=== PATIENT | female | born 1995 | race Caucasian/White ===

== ENCOUNTER 2018-11-22 07:29 | Emergency (ER) | payer SELFPAY ==
[~2018-11-22] VITALS: Ht 172.7 cm; Wt 71.7 kg
[2018-11-22] MEDS ORDERED: NKM (07:35)
[2018-11-22 07:37] VITALS: BP 138/81
--- NOTE | 2018-11-22 07:37 | NUR ---
ED Nurse Note: A/OX4. AMBULATED INTO ER DUE TO FACIAL SWELLING AND BILATERAL JAW PAIN 04/14 SINCE YESTERDAY. PT STATES THE PAIN INCREASES WITH NECK MOVEMENT OR CHEWING MOTION. TOOK MOTRIN YESTERDAY BUT DID NOT RELIEVE THE PAIN.
[2018-11-22] MEDS ORDERED: LORazepam Inj 2mg/ml 1ml IV ONE (08:00)
[2018-11-22] MEDS ORDERED: Ketorolac 30mg Inj IV ONE (08:00)
[2018-11-22] MEDS ORDERED: Isovue-300 100ml vial INJ PRN (08:00)
--- NOTE | 2018-11-22 08:03 | Emergency Room Report ---
History of Present Illness General Chief Complaint: General Complaint Source: Patient Present Illness HPI 23-year-old female with no PMH presents with bilateral facial pain since yesterday, denies f/c, ear pain, sore throat, vision complaints, headache, toothache, trauma, recent travel. Pain is constant, nonradiating, moderate intensity, partially relieved with tylenol. Allergies: Coded Allergies: No Known Allergies (Unverified , 11/22/18) Patient History Past Medical History: see triage record Last Menstrual Period: 3 weeks ago Reviewed Nursing Documentation: PMH: Agreed; PSxH: Agreed Nursing Documentation-PMH Past Medical History: No Stated History Review of Systems All Other Systems: negative except mentioned in HPI Physical Exam Vital Signs Date Time Temp Pulse Resp B/P (MAP) Pulse Ox O2 Delivery O2 Flow Rate FiO2 11/22/18 07:32 99.0 106 18 138/81 97 Room Air Sp02 EP Interpretation: reviewed, normal General Appearance: no apparent distress, alert, non-toxic Head: normocephalic Eyes: bilateral eye normal inspection, bilateral eye PERRL, bilateral eye EOMI ENT: normal ENT inspection, hearing grossly normal, normal pharynx, no angioedema, normal voice, TMs + canals normal, uvula midline, moist mucus membranes, other - B/L parotid gland areas swollen with mild tenderness, no overlying erythema/warmth/tenderness Neck: normal inspection, full range of motion, supple, thyroid normal, no meningismus, no bony tend, supple/symm/no masses Respiratory: chest non-tender, lungs clear, normal breath sounds, no rhonchi, no respiratory distress, no retraction, no accessory muscle use, no wheezing, chest symmetrical, palpation of chest normal Cardiovascular #1: normal peripheral pulses, regular rate, rhythm, no edema, no gallop, no JVD, no murmur, no rub Cardiovascular #2: 2+ radial (R), 2+ radial (L) Gastrointestinal: normal inspection, non tender, soft, no mass, no guarding, no rebound Rectal: deferred Genitourinary: normal inspection, no CVA tenderness Musculoskeletal: back normal, gait/station normal, normal range of motion, non- tender, no calf tenderness Neurologic: alert, responsive, 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 Labs with elevated WBC, CT shows nonspecific parotitis, no stones, no abscesses. Patient dc'd with instructions for f/u with PMD for monitoring and possible ID referral, as well as with augmentin 875 bid x 10d. Last Vital Signs Date Time Temp Pulse Resp B/P (MAP) Pulse Ox O2 Delivery O2 Flow Rate FiO2 11/22/18 07:37 99.0 106 18 138/81 97 Room Air Disposition: HOME, SELF-CARE Condition: Stable Scripts Ibuprofen* (MOTRIN*) 600 Mg Tablet 600 MG ORAL Q8H PRN for For Pain, #20 TAB 0 Refills Prov: NISSA AGGARWAL M.D 11/22/18 Amoxicillin/Potassium Clav 875-125* (AUGMENTIN 875-125 TABLET*) 1 Each Tablet 1 TAB ORAL TWICE A DAY for 10 Days, #20 TAB Prov: NISSA AGGARWAL M.D 11/22/18 NISSA AGGARWAL M.D Nov 22, 2018 08:03
[2018-11-22 08:26] VITALS: BP 130/86
--- NOTE | 2018-11-22 08:26 | NUR ---
ED Nurse Note: urine and blood specimen collected and sent down to the lab.
[2018-11-22 08:33] LABS: BASOPHILS % (AUTO) 0.7 % (0.0-2.0); EOSINOPHILS % (AUTO) 1.2 % (0.0-3.0); HEMATOCRIT 41.6 % (37.0-47.0); HEMOGLOBIN 13.4 G/DL (12.0-16.0); LYMPHOCYTES % (AUTO) 9.5 % (20.0-45.0); MEAN CORPUSCULAR VOLUME 82 FL (80-99); MONOCYTES % (AUTO) 6.5 % (1.0-10.0); NEUTROPHILS % (AUTO) 82.2 % (45.0-75.0); PLATELET COUNT 284 K/UL (150-450); RED BLOOD COUNT 5.06 M/UL (4.20-5.40); RED CELL DISTRIBUTION WIDTH 13.3 % (11.6-14.8); WHITE BLOOD COUNT 17.2 K/UL (4.8-10.8)
[2018-11-22 08:37] LABS: ANION GAP 10 mmol/L (5-15); BLOOD UREA NITROGEN 10 mg/dL (7-18); CALCIUM 9.8 MG/DL (8.5-10.1); CARBON DIOXIDE 26 MMOL/L (21-32); CHLORIDE 102 MMOL/L (98-107); POTASSIUM 3.4 MMOL/L (3.5-5.1); SODIUM 138 MMOL/L (136-145)
[2018-11-22 08:42] LABS: ALANINE AMINOTRANSFERASE 17 U/L (12-78); ALBUMIN 4.7 G/DL (3.4-5.0); ALBUMIN/GLOBULIN RATIO 1.1 (1.0-2.7); ALKALINE PHOSPHATASE 76 U/L (46-116); ASPARTATE AMINO TRANSFERASE 17 U/L (15-37); BILIRUBIN,TOTAL 0.7 MG/DL (0.2-1.0)
[2018-11-22] MEDS ORDERED: Unasyn 3gm Inj IV ONE (09:30)
--- NOTE | 2018-11-22 09:34 | Emergency Room Report ---
History of Present Illness General Chief Complaint: General Complaint Source: Patient Present Illness HPI 23 yo F with no medical problems, no recent travel out of the country, no history of drug use, presents with bilateral facial swelling, left slightly greater than right, as well as pain, started yesterday, she took Tylenol at the time and had some improvement, but then when she woke up this morning symptoms worsened, she denies toothache, earache, fever, blurred vision, sore throat, numbness, tingling, weakness, slurred speech,'s any other complaints. Allergies: Coded Allergies: No Known Allergies (Unverified , 11/22/18) Patient History Past Medical History: see triage record Last Menstrual Period: 3 weeks ago Reviewed Nursing Documentation: PMH: Agreed; PSxH: Agreed Nursing Documentation-PMH Past Medical History: No Stated History Review of Systems All Other Systems: negative except mentioned in HPI Physical Exam Vital Signs Date Time Temp Pulse Resp B/P (MAP) Pulse Ox O2 Delivery O2 Flow Rate FiO2 11/22/18 07:32 99.0 106 18 138/81 97 Room Air Sp02 EP Interpretation: reviewed, normal General Appearance: no apparent distress, alert, non-toxic Head: normocephalic Eyes: bilateral eye normal inspection, bilateral eye PERRL, bilateral eye EOMI ENT: normal ENT inspection, hearing grossly normal, normal pharynx, no angioedema, normal voice, TMs + canals normal, uvula midline, moist mucus membranes Neck: normal inspection, full range of motion, supple, thyroid normal, no meningismus, no bony tend - bilateral parotid gland areas with tenderness, edema , no fluctuance, no overlying skin changes, no overlying erythema, supple/symm/ no masses, other Respiratory: chest non-tender, lungs clear, normal breath sounds, chest symmetrical, palpation of chest normal Cardiovascular #1: normal peripheral pulses, regular rate, rhythm, no edema, no gallop, no JVD, no murmur, no rub Cardiovascular #2: 2+ radial (R), 2+ radial (L) Gastrointestinal: normal inspection, non tender, soft, no mass, no guarding, no rebound Rectal: deferred Genitourinary: normal inspection, no CVA tenderness Musculoskeletal: back normal, gait/station normal, normal range of motion, non- tender, no calf tenderness Neurologic: alert, responsive, room service manager III-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 Last Vital Signs Date Time Temp Pulse Resp B/P (MAP) Pulse Ox O2 Delivery O2 Flow Rate FiO2 11/22/18 07:32 99.0 106 18 138/81 97 Room Air NISSA AGGARWAL M.D Nov 22, 2018 09:34
--- NOTE | 2018-11-22 09:59 | Diagnostic Imaging Report ---
Indication: Bilateral facial jaw pain and swelling. No trauma. Technique: Continuous helical transaxial imaging of the maxillofacial structures obtained after intravenous contrast administration. Coronal 2-D reformats were also obtained. Study obtained in a Siemens sensation [address] Total Dose length Product (DLP): 666.[address] Dose Index Volume (CTDIvol): 28.19 mGy Comparison: None Findings: There is generalized, bilateral facial subcutaneous reticulation and edema with some skin thickening demonstrated. This is centered about the parotid glands and submandibular region bilaterally. The parotid glands appear mildly heterogeneous bilaterally. There is no abscess or evidence of salivary stones. There are multiple nodes within the neck, likely inflammatory. There is some thickening of the platysma muscle bilaterally due to inflammation that extends deep to the muscle. The region of the adenoids appear unremarkable. The visualized nasopharynx including the posterior lateral wall the nasopharynx appears normal. The region of the oral pharynx appears normal. The epiglottis and aryepiglottic folds within the supraglottic airway appear normal. The larynx is visualized on this exam and unremarkable. Subglottic airway is partially seen and appears clear. The thyroid gland is normal. This is only partially visualized. The major vessels in the neck enhance normally. The temporomandibular joints appear normal bilaterally. There is no fracture. Mastoids are clear. Paranasal sinuses appear clear. No obvious dental abscess identified. Dentition appears unremarkable on the basis of this exam. IMPRESSION: Suspected bilateral parotiditis/sialoadenitis given subcutaneous edema and inflammation centered about the parotid and submandibular glands. Some mild heterogeneity of the parotid glands may be present. No abscess or stones. Differential diagnosis is very large including infection such as mumps,, HIV, acute bacterial parotiditis, sarcoid, autoimmune diseases such as Sjogren's among many other possibilities. Recommend further clinical workup and management.
[2018-11-22 10:30] VITALS: BP 122/73
[2018-11-22] MEDS ORDERED: AUGMENTIN 875-1 EAC1 ORAL (11:04)
[2018-11-22] MEDS ORDERED: IBUPROFEN600 MG ORAL (11:04)
[2018-11-22 11:28] VITALS: BP_SYST 123; BP_DIAS 72; BP_DIAS 73
--- NOTE | 2018-11-22 11:30 | NUR ---
ED Nurse Note: A/OX4. PT IS CLEARED BY DR. AGGARWAL. DC INSTRUCTION AND PRESCRIPTIONS GIVEN, PT VERBALIZED UNDERSTANDING. IV AND ID WRIST REMOVED. ALL BELONGINGS GIVEN TO PT. PT AMBULATED OUT OF ER WITH STEADY GAIT.
== END 2018-11-22 11:31 | disposition home or self-care (01) ==
LOC: EMR 08:10
DX: K11.21 Acute sialoadenitis (principal)
CPT/HCPCS: 36415; 70487; 80053; 81025; 85025; 96361; 96374; 96375; 99284; J0295; J1885; Q9967